=== PATIENT | female | born 1970 | race Caucasian/White ===

== ENCOUNTER 2018-12-28 12:08 | Emergency (ER) | payer BC ==
[2018-12-28 12:24] VITALS: O2SAT 97
--- NOTE | 2018-12-28 12:43 | ERPHSYRPT ---
- History of Present Illness Time Seen by Provider: 12/28/18 12:41 Source: patient Exam Limitations: no limitations Patient Subjective Stated Complaint: running after grandchild and slipped on some water and went down on her tail bone on hard wood [place], tail bone area is extremely painful Triage Nursing Assessment: Pt reports that she was running after her grandchild and slipped on some water and went down on her tail bone on hard wood [place], tail bone area is extremely painful, small bruise, moves with caution, rates pain 10/10, pulses normal, hypertensive, denies any other injuries Physician History: running after grandchild and slipped on some water and went down on her tail bone on hard wood [place], tail bone area is extremely painful so she came to ER Timing/Duration: today Severity: moderate Associated Symptoms: other (sacral area pain) Allergies/Adverse Reactions: propranolol HCl [From Inderal] Allergy (Severe, Verified 12/28/18 12:24) hallucinations Home Medications: Levetiracetam [Keppra] 300 mg PO TID 08/27/12 [History] Hx Tetanus, Diphtheria Vaccination/Date Given: Yes Hx Influenza Vaccination/Date Given: No Hx Pneumococcal Vaccination/Date Given: No - Review of Systems Constitutional: No Fever, No Chills Eyes: No Symptoms Ears, Nose, & Throat: No Symptoms Respiratory: No Cough, No Dyspnea Cardiac: No Chest Pain, No Edema, No Syncope Abdominal/Gastrointestinal: No Abdominal Pain, No Nausea, No Vomiting, No Diarrhea Genitourinary Symptoms: No Dysuria Musculoskeletal: Back Pain (mid sacral area pain), No Neck Pain Skin: No Rash Neurological: No Dizziness, No Focal Weakness, No Sensory Changes Psychological: No Symptoms Endocrine: No Symptoms All Other Systems: Reviewed and Negative - Past Medical History Pertinent Past Medical History: Yes Neurological History: Epilepsy, Seizures ENT History: No Pertinent History Cardiac History: No Pertinent History Respiratory History: Bronchitis Endocrine Medical History: No Pertinent History Musculoskeletal History: No Pertinent History GI Medical History: GERD, Hernia History: No Pertinent History Psycho-Social History: No Pertinent History Female Reproductive Disorders: Endometriosis Other Medical History: LAST SEIZURE 2 YEARS AGO - Past Surgical History Past Surgical History: Yes Neuro Surgical History: No Pertinent History Cardiac: No Pertinent History Respiratory: No Pertinent History Gastrointestinal: No Pertinent History Genitourinary: No Pertinent History Musculoskeletal: No Pertinent History Female Surgical History: Hysterectomy, Tubal Ligation Other Surgical History: T&A - Social History Smoking Status: Current every day smoker How long have you smoked: 20 YRS. Exposure to second hand smoke: Yes Drug Use: none Patient Lives Alone: No - Female History Hx Now: No - Nursing Vital Signs Nursing Vital Signs: Initial Vital Signs Temperature 97.9 F 12/28/18 12:14 Pulse Rate 87 12/28/18 12:14 Blood Pressure 150/93 12/28/18 12:14 O2 Sat by Pulse Oximetry 97 12/28/18 12:14 Pain Scale Pain Intensity [] 10 Pain Intensity 10 - Physical Exam General Appearance: no apparent distress Eye Exam: PERRL/EOMI Ears, Nose, Throat Exam: normal ENT inspection Neck Exam: normal inspection Respiratory Exam: normal breath sounds Cardiovascular Exam: regular rate/rhythm Gastrointestinal/Abdomen Exam: soft Back Exam: other (sacral area tenderness) Extremity Exam: normal inspection, normal range of motion Neurologic Exam: alert, oriented x 3, cooperative SpO2: 97 - Course Nursing assessment & vital signs reviewed: Yes - Radiology Exams Pelvis X-ray Interpretation: Reviewed by me (nondisplaced fracture sacrum) Ordered Tests: Active Orders 24 hr Category Date Time Status PELVIS (1 OR 2 VIEWS) Stat Exams 12/28/18 13:11 Taken Medication Summary Discontinued Medications Generic Name Dose Route Start Last Admin Trade Name Leandro PRN Reason Stop Dose Admin Ketorolac Tromethamine 60 mg 12/28/18 13:06 Toradol 30 Mg Injection IM 12/28/18 13:07 STAT ONE - Progress Progress: improved, pain not gone completely Counseled pt/family regarding: diagnosis, need for follow-up, rad results - Departure Departure Disposition: Home Clinical Impression: Sacral bruising Qualifiers: Encounter type: initial encounter Qualified Code(s): S30.0XXA - Contusion of lower back and pelvis, initial encounter Sacral fracture, closed Qualifiers: Encounter type: initial encounter Zone of sacrum fracture: unspecified portion of sacrum Qualified Code(s): S32.10XA - Unspecified fracture of sacrum, initial encounter for closed fracture Condition: Stable Critical Care Time: No Referrals: VIJAY ALEXANDER MD [Primary Care Provider] - Instructions: Coccyx Injury (DC) Additional Instructions: BACK INJURY 1. May apply moist heat frequently for relief of pain. Take care not to burn the skin. Do not use heat for more than 30 minutes at a time. 2. Try to sleep on a firm bed, flat on your back. 3. If no improvement is noticed in 2-3 days, follow up with your family physician. 4. If you notice any numbness, tingling, weakness, or problems with your bowel or bladder, you should call your family physician or return to the emergency department. OVIDIO JARVIS GONZÁLEZ was seen on 12/28/18 n the Emergency Room. At that time you were treated for an emergent condition, during your visit Laboratory, Radiology and/or other procedures may have been ordered. It is very important that you follow-up with your Primary Care Physician VIJAY ALEXANDER within the next 24- 48 hours to review your Emergency Room visit and the final results of testing that was ordered. Some test results such as Urine Cultures, Blood Cultures, and other cultures if ordered will not be finalized for 24-48 hours. If you do not have a Primary Care Provider please call the medical records department at [phone] to obtain a copy of your results or you may sign into our patient portal to obtain these results by visiting us @ [email or web address] and completing the following steps: 1. Click on the Patient Portal link 2. Click the Patient Self Enrollment Link to complete the enrollment form and entering your 3. Once the enrollment form is completed you will receive an email with a temporary ID and password at the email address you provided. 4. Next choose a user name and password. Your user name must be at least 4 characters long and your password must be at least 4 characters long. 5. Choose a security question from the list and provide your answer to the question. If you already have signed into the Health Portal you may access your Health Care Information 22/04 by the following steps: 1. Login to our website @ [email or web address] 2. Enter your original user name and password. FAQS The [facility] Health Portal is an online tool that contains your Lab Results, Radiology Reports, Visit History, Discharge Instructions and Health Summary Lab and Radiology Results will not be available for 72 hours on the portal. The Portal is a secure site, passwords are encryted and URLs are re-written so they cannot be copied and pasted. You and authorized family members are the only ones who can access your Portal. Also there is a timeout feature that protects your information if you leave the Portal page open. If you have technical difficulty please use the Contact Us link on the page this will allow you to submit any questions you have regarding the Portal or you may contact the Medical Record Department at [phone]. Prescriptions: Cyclobenzaprine HCl 10 mg [Flexeril 10 MG] 10 mg PO TID #30 tablet Naproxen 500 mg [Naprosyn 500 MG] 500 mg PO BIDAC #30 tablet
[2018-12-28] MEDS ORDERED: TORAdol 30 mg Injection IM ONE (13:06)
[2018-12-28] MEDS ORDERED: TORAdol 30 mg Injection ONE (13:41)
[2018-12-28 13:47] VITALS: BP 145/91; PULSE 79
[2018-12-28] MEDS ORDERED: Lactated Ringers 1,000 ML IV ONE (17:07)
--- NOTE | 2018-12-28 20:07 | XRAY ---
Indication: Tailbone pain following fall. Comparison: None Single AP pelvis obtained. No bony, articular, or soft tissue abnormalities.
== END 2018-12-28 13:52 | disposition home or self-care (01) ==
LOC: ED 12:08
DX: S30.0XXA Contusion of lower back and pelvis, initial encounter (principal); S32.10XA Unspecified fracture of sacrum, initial encounter for closed fracture; W01.0XXA Fall on same level from slipping, tripping and stumbling without subsequent striking against object, initial encounter; Y93.02 Activity, running; Y92.009 Unspecified place in unspecified non-institutional (private) residence as the place of occurrence of the external cause
CPT/HCPCS: 72170; 96372; 99284; J1885